=== PATIENT | female | born 1970 | race African-American/Black ===

== ENCOUNTER 2021-07-02 06:04 | Emergency (ER) | payer OTHER ==
[~2021-07-02] VITALS: Ht 167.6 cm; Wt 78.0 kg
[~2021-07-02 06:04] MED LIST: AMLODIPINE; LORAZEPAM
[2021-07-02] MEDS ORDERED: IBUPROFEN 600MG TABLET PO STA (06:14)
[2021-07-02 06:59] VITALS: BP 149/96
[2021-07-02] MEDS ORDERED: CYCL10TA7 MT (07:18)
[2021-07-02] MEDS ORDERED: IBUP-2029 MT (07:18)
== END 2021-07-02 07:29 | disposition home or self-care (01) ==
LOC: ER 06:04
DX: R07.89 Other chest pain (principal); V43.52XA Car driver injured in collision with other type car in traffic accident, initial encounter; Y93.89 Activity, other specified; Y92.488 Other paved roadways as the place of occurrence of the external cause
CPT/HCPCS: 71045; 93005; 99283